=== PATIENT | male | born 1990 ===

== ENCOUNTER 2017-06-16 00:37 | Emergency (ER) | payer SELFPAY ==
[2017-06-16 00:49] VITALS: BP 134/85; RESP 16; TEMP 98.3; O2SAT 98
[2017-06-16] MEDS ORDERED: Absorbable Gelatin Sponge Size 100 TP ONE (00:56)
[2017-06-16] MEDS ORDERED: Tdap Vaccine 0.5 ml Vial (10-64 yrs) IM ONE (00:57)
--- NOTE | 2017-06-16 01:37 | ED PDOC ---
Lower Extremity Pain/Injury Time Seen by Provider: 06/16/17 00:41 Chief Complaint (Nursing): Lower Extremity Problem/Injury Chief Complaint (Provider): Bilateral knee pain History Per: Patient History/Exam Limitations: no limitations Onset/Duration Of Symptoms: Mins Current Symptoms Are (Timing): Still Present Additional Complaint(s): 27 yo male with no medical problems presents with bilateral knee pain after being arrested. Pt states one minute he was smoking a cigarette and the next he was on the floor. PT has bilateral knee pain, right elbow pain. Pt has abrasions on lower legs and unknown tetanus. Past Medical History Reviewed: Historical Data, Nursing Documentation, Vital Signs Vital Signs: Last Vital Signs Temp 98.3 F 06/16/17 00:45 Pulse 121 H 06/16/17 00:45 Resp 16 06/16/17 00:45 BP 134/85 06/16/17 00:45 Pulse Ox 98 06/16/17 00:45 - Medical History PMH: No Chronic Diseases - Surgical History Surgical History: No Surg Hx - Family History Family History: States: No Known Family Hx - Living Arrangements Living Arrangements: With Family - Allergies Allergies/Adverse Reactions: Allergies Allergy/AdvReac Type Severity Reaction Status Date / Time No Known Allergies Allergy Verified 06/16/17 00:45 - ECG O2 Sat by Pulse Oximetry: 98 Medical Decision Making Medical Decision Making: Wounds irrigated and antibiotics ointment applied. Pt does not want tetanus vaccine. Knee x-ray without acute fracture or dislocation. Motrin given for bruno. Crisis evaluation completed. Disposition - Clinical Impression Clinical Impression: Knee pain - Patient ED Disposition Is Patient to be Admitted: No Counseled Patient/Family Regarding: Diagnosis, Need For Followup - Disposition Disposition: Routine/Home Disposition Time: :31 Condition: STABLE Additional Instructions: Pt is medically and psychiatrically stable for incarceration. Instructions: Knee Pain (DC) Forms: [employer] ([place])
[2017-06-16 01:48] VITALS: PULSE 99
--- NOTE | 2017-06-16 08:29 | RAD ---
PROCEDURE: Bilateral Knee Radiographs. HISTORY: pain, fall COMPARISON: None. FINDINGS: BONES: No acute fracture or destructive bony lesion identified, bilaterally. JOINTS: No subluxation or dislocation appreciated. SOFT TISSUES: Grossly nonfocal though the upper knee soft tissues are somewhat obscured by overlying pants material. JOINT EFFUSION: Right Knee: None. Left Knee: None. OTHER FINDINGS: None. IMPRESSION: No acute fracture or dislocation identified bilateral knees.
== END 2017-06-16 02:08 | disposition home or self-care (01) ==
LOC: H.ER 00:37
DX: S80.211A Abrasion, right knee, initial encounter (principal); S80.212A Abrasion, left knee, initial encounter; Y92.89 Other specified places as the place of occurrence of the external cause; M25.561 Pain in right knee; M25.562 Pain in left knee